=== PATIENT | male | born 1995 | race Caucasian/White ===

== ENCOUNTER 2023-01-29 08:04 | Outpatient (CLI) | payer OTHER, SELFPAY ==
--- NOTE | 2023-01-31 10:14 | WPDPFTINT ---
PFT Procedure Performed PFT Procedure Performed Spirometry with Pre/Post Bronchodilator Plethysmography (Lung Vol) Diffusing Cap (DLCO) Flow Vol Loop PFT Interpretation DOS: 01/29/2023 REQUESTING: MYA Saavedra REASON FOR TESTING: shortness of breath PULMONARY FUNCTION TESTS Results are reliable and reproducible. Spirometry: Pre bronchodilator FEV1 is 3.51 L, 80%, normal. Pre-bronchodilator FVC is 4.28 L, 82%, normal. FEV1:FVC 82%, normal. After bronchodilator, FEV1 increased 6%, 3.71 L, 84% predicted. FVC increases by 4%, 4.45 L, 86% predicted. FEV1:FVC after bronchodilator is 83%, normal. [id number]% is 70%, 3.57 L, normal, increases 17%, to 4.18 L, 82%. Lung volumes: Total lung capacity is 5.72 L, 82%, normal. Residual volumes is 1.41 L, 83%, normal. RV/TLC 25%, normal. Raw 3.51 cmH20/L/sec, 171%, increased. Diffusion: DLCO is 39.7, 99%, normal. DLCO/VA is 7.56, 163% predicted which shows overcorrection. This finding is nonspecific, can be seen in asthma. Flow volume loop: The patient had a normal flow volume loop on the first attempt, with subsequent attempt showing a subtle kink in the middle of the inspiratory limb. IMPRESSION: Normal spirometry, lung volumes, and diffusion. The overcorrection of diffusion for alveolar surface area is non specific and can be seen in asthma. Lack of response to bronchodilator should not preclude use if clinically indicated. Alicia Franklin MD
== END 2023-01-29 08:05 | disposition home or self-care (01) ==
LOC: CHSCARD 08:13
PROVIDERS: PCP Family Medicine; Visit Provider Registered Nurse
DX: R06.02 Shortness of breath (principal)
CPT/HCPCS: 94060; 94726; 94729